=== PATIENT | female | born 1960 | race Caucasian/White ===

== ENCOUNTER 2023-07-14 07:21 | Day surgery (SDC) | payer OTHER, SELFPAY ==
--- NOTE | 2023-07-13 09:59 | P.CONAN_ITS ---
Documented by User: Galilea Ochoa NP 07/13/23 09:59 HPI - Anesthesia Eval Consult details Narrative: 62yo F for Colonoscopy s/p R mastectomy COUNTS INCLUDE 234 BEDS AT THE [facility] Past Medical History Medical History Osteoporosis Breast CA Surgical History Surgical History (Updated 07/14/23 @ 08:07 by Cheyenne Villarreal MD) H/O colonoscopy H/O mastectomy Social History Social History Patient Tobacco Use Status: Never used Tobacco Use of substances other than those prescribed or required for medical reasons: No Advance Directives: No Advance Directives Information Provided: Yes Meds Allergies Allergy/AdvReac Type Severity Reaction Status Date / Time No Known Allergies Allergy Verified 07/13/23 07:26 Home Medications Medication Instructions Recorded Confirmed Last Taken Type fiber 600 mg PO 07/13/23 Unknown History risedronate 35 mg tablet 35 mg PO QWEEK 07/13/23 07/13/23 Unknown History Exam Exam Date and Time: July 13, 2023 0959 Assessment and Plan Assessment Anesthesia Assessment: Chart Reviewed Documented by User: Cheyenne Villarreal MD 07/14/23 08:38 COUNTS INCLUDE 234 BEDS AT THE [facility] Past Medical History Medical History Osteoporosis Breast CA Family History Family history of problems with anesthesia: No Surgical History Surgical History (Updated 07/14/23 @ 08:07 by Cheyenne Villarreal MD) H/O colonoscopy H/O mastectomy History of Problems with Anesthesia: Yes (PONV) Social History Social History Patient Tobacco Use Status: Never used Tobacco Use of substances other than those prescribed or required for medical reasons: No Advance Directives: No Advance Directives Information Provided: Yes Meds Allergies Allergy/AdvReac Type Severity Reaction Status Date / Time No Known Allergies Allergy Verified 07/13/23 07:26 Home Medications Medication Instructions Recorded Confirmed Last Taken Type fiber 600 mg PO 07/13/23 Unknown History risedronate 35 mg tablet 35 mg PO QWEEK 07/13/23 07/13/23 Unknown History Exam Height,Weight and Vital Signs: Height 5 ft 1 in Weight 51.256 kg Vital Signs Temp Pulse Resp BP Pulse Ox O2 Del Method 07/14/23 07:49 96.9 F 75 16 152/78 H 97 Room Air Airway Mallampati Class: II TM Dist: >3cm Neck ROM: Full Loose/Missing/Broken Teeth: No (Deniesbroken, loose, missing teeth) Heart: RRR Lungs: CTAB Assessment and Plan Assessment Anesthesia Assessment: Anesthesia Plan Discussed Final Anesthetic Review Family History of Problems with Anesthesia: No History of Problems with Anesthesia: Yes (PONV) NPO: Yes ASA Class: II Final Preanesthetic Review: No Changes in Pt Med Stat, Meds/Allgs Chart Reviewed, Consent Obtained/Reviewed and Anes Risks/Benef Reviewed Patient Risk: Low Procedure Risk: Low Assessment/Block/Sedation in SS: Assess/Block/Sedation-SS Anesthetic Plan Anesthetic Plan: MAC: Disposition: Standard PACU
[2023-07-14 07:49] VITALS: BP 152/78; PULSE 75; RESP 16; TEMP 36.1; O2SAT 97; BMI 21.3
[2023-07-14 09:04] VITALS: BP 105/53; PULSE 68; RESP 14; TEMP 35.7; O2SAT 97
--- NOTE | 2023-07-14 09:08 | PM.OP ---
Brief Operative Note Date of Service: 07/14/23 Pre-op diagnosis: Screening Post-op diagnosis: other (Diverticulosis) Procedure: Colonoscopy to the cecum Surgeon: Mg Chavez Anesthesia: MAC Was an Quill Picking Machine Operator used for this Procedure?: No Estimated blood loss (mL): 0 Pathology: none sent Condition: stable Disposition: PACU
[2023-07-14 09:14] VITALS: TEMP 36.1
--- NOTE | 2023-07-14 09:22 | OP_ITS ---
DATE OF SERVICE: 07/14/2023 SURGEON: Mg Chavez MD INDICATIONS: The patient presents for evaluation of colorectal cancer screening. Full consent obtained from her for this, including risks of bleeding and perforation. PREOPERATIVE DIAGNOSIS: Colorectal cancer screening. POSTOPERATIVE DIAGNOSIS: PROCEDURE PERFORMED: Colonoscopy to the cecum. ESTIMATED BLOOD LOSS: COMPLICATIONS: ANESTHESIA: Monitored anesthesia care. ASSISTANTS: SPECIMENS: POSTOPERATIVE DIAGNOSES: Colorectal cancer screening, mild sigmoid diverticulosis, small internal hemorrhoids. DESCRIPTION OF PROCEDURE: The patient was placed in the left lateral decubitus position. The digital rectal exam revealed no abnormalities. The Olympus video pediatric colonoscope was entered into the rectum advanced to the cecum with the assistance of abdominal wall pressure. Once in the cecum, I did identify normal-appearing cecal pouch with appendiceal orifice and a normal-appearing ileocecal valve. The entire cecum and ileocecal valve appeared normal. The scope was slowly withdrawn assessing all mucosal surfaces carefully. Preparation was excellent. I did not visualize any sign of polyps, colitis nor angiodysplasia. There were occasional diverticula noted in the sigmoid colon. In the rectum, scope was retroflexed visualizing small internal hemorrhoids, but no other pathology. The rectal mucosa appeared normal. The scope was straightened and withdrawn from the patient. She tolerated the procedure well and was returned to recovery area in stable condition. IMPRESSION: 1. Mild diverticulosis. 2. Internal hemorrhoids. PLAN: Given her negative exam and negative family history, I would recommend a followup colonoscopy in 10 years for further screening. She will otherwise see me on a p.r.n. basis. Mg Chavez MD RMW/MODL / [id number]
[2023-07-14 09:29] VITALS: BP 126/65; PULSE 68; RESP 16; O2SAT 97
[2023-07-14 09:44] VITALS: BP 166/83; PULSE 60; RESP 16; TEMP 36.2; O2SAT 100
== END 2023-07-14 10:21 | disposition home or self-care (01) ==
PROVIDERS: PCP Nurse Practitioner Gerontology; Visit Provider Internal Medicine
PROC: 0DJD8ZZ Inspection of Lower Intestinal Tract, Via Natural or Artificial Opening Endoscopic (ICD-10-PCS; CPT 45378; principal; 2023-07-14 08:30)
DX: Z12.11 Encounter for screening for malignant neoplasm of colon (principal); K57.30 Diverticulosis of large intestine without perforation or abscess without bleeding; K64.8 Other hemorrhoids; M81.0 Age-related osteoporosis without current pathological fracture; Z90.11 Acquired absence of right breast and nipple; Z85.3 Personal history of malignant neoplasm of breast; Z92.3 Personal history of irradiation; Z92.21 Personal history of antineoplastic chemotherapy; Z79.899 Other long term (current) drug therapy
CPT/HCPCS: 45378; J2405